=== PATIENT | female | born 1995 ===

== ENCOUNTER 2020-03-24 12:13 | Emergency (ER) | payer MEDICAID ==
[~2020-03-24] VITALS: Ht 157.5 cm; Wt 54.5 kg
[2020-03-24 12:16] VITALS: Ht 157.5 cm; Wt 54.5 kg
[2020-03-24] MEDS ORDERED: LEXAPRO20 MG PO (12:18)
[2020-03-24] MEDS ORDERED: INSULIN PUMP (12:19)
[2020-03-24] MEDS ORDERED: TYLENOL #4 W/CO1 TAB PO (13:10)
[2020-03-24 14:40] VITALS: BP 115/74
== END 2020-03-24 13:44 | disposition home or self-care (01) ==
LOC: D.ER 12:13
DX: M25.512 Pain in left shoulder (principal); M25.562 Pain in left knee; V89.2XXA Person injured in unspecified motor-vehicle accident, traffic, initial encounter; Y93.9 Activity, unspecified; Y92.9 Unspecified place or not applicable; E11.9 Type 2 diabetes mellitus without complications; Z79.4 Long term (current) use of insulin